=== PATIENT | female | born 1980 | race Caucasian/White ===

== ENCOUNTER 2017-04-16 12:00 | Emergency (ER) | payer BC ==
[~2017-04-16] VITALS: Ht 182.9 cm; Wt 44.5 kg
[2017-04-16 13:00] LABS: Basophils # (auto) 0 uL; Basophils % (auto) 0.8 % (0.0-2.0); CONDITION Y; Eosinophils # (auto) 0.2 uL; Eosinophils % (auto) 2.9 % (0.0-7.0); Hematocrit 41.4 % (36.0-46.0); Hemoglobin 13.7 g/dL (12.2-16.2); Lymphocytes % (auto) 19.9 % (10.0-50.0); Mean Corpuscular Hemoglobin 31.2 pg (28.0-32.0); Mean Corpuscular Hgb Conc. 33.1 g/dL (32.0-36.0); Mean Corpuscular Volume 94.3 fL (80.0-100.0); Mean Platelet Volume 9.8 fL (7.4-10.4); Monocytes # (auto) 0.4 uL; Monocytes % (auto) 7.9 % (0.0-12.0); Neutrophils # (auto) 3.5 uL; Neutrophils % (auto) 68.5 % (37.0-80.0); Platelet Count (auto) 218 10^3/uL (140-450); Red Cell Distribution Width 13.9 % (11.6-16.0); SUSPECT SEE PRINTOUT; White Blood Cell 5.2 10^3/uL (4.4-10.8)
[2017-04-16 13:05] LABS: Urine Bilirubin Negative (Negative); Urine Blood Negative /uL (Negative); Urine Color Yellow (Yellow); Urine Glucose Normal (Normal); Urine Ketone Negative (Negative); Urine Nitrite Negative (Negative); Urine RBC 1 /hpf (0 - 4); Urine Squamous Epithelial Cell FEW /hpf (<5); Urine Urobilinogen Normal (Negative); Urine pH 6.5 (5.0-8.0)
[2017-04-16 13:13] LABS: Albumin 3.8 g/dL (3.4-5.0); Calcium 9.1 mg/dL (8.5-10.1); Potassium 3.9 mmol/L (3.5-5.1)
[2017-04-16 13:16] LABS: Bilirubin, Total 0.4 mg/dL (0.2-1.0)
[2017-04-16 15:00] VITALS: BP 128/89
== END 2017-04-16 17:03 | disposition home or self-care (01) ==
LOC: ER 12:00
DX: K29.00 Acute gastritis without bleeding (principal); Z90.49 Acquired absence of other specified parts of digestive tract; Z87.442 Personal history of urinary calculi
CPT/HCPCS: 36415; 80053; 81001; 84702; 85025

== ENCOUNTER 2017-05-11 21:53 | Emergency (ER) | payer BC ==
[~2017-05-11] VITALS: Ht 154.9 cm; Wt 46.3 kg
[2017-05-11 22:15] VITALS: BP 141/96
== END 2017-05-12 00:48 | disposition left against medical advice (07) ==
LOC: EDBD 21:53 → ER 21:56
DX: R45.851 Suicidal ideations (principal); Z53.21 Procedure and treatment not carried out due to patient leaving prior to being seen by health care provider

== ENCOUNTER → 2018-01-17 | Outpatient (CLI) | payer BC ==
[2018-01-17 13:56] LABS: Urine WBC None Seen /hpf (0 - 5)
[2018-01-17 14:04] LABS: Urine Bacteria NONE SEEN /hpf (None Seen); Urine Blood Negative /uL (Negative); Urine Specific Gravity 1.002 (1.001-1.035)
[2018-01-18 05:07] LABS: RPR Non Reactive (Non Reactive)
== END | disposition home or self-care (01) ==
LOC: LAB 13:37
PROVIDERS: ATTEND Obstetrics & Gynecology
DX: Z11.3 Encounter for screening for infections with a predominantly sexual mode of transmission (principal); N91.2 Amenorrhea, unspecified; N39.0 Urinary tract infection, site not specified; Z20.2 Contact with and (suspected) exposure to infections with a predominantly sexual mode of transmission
CPT/HCPCS: 36415; 81001; 84702; 86592; 86695; 86696; 86703; 87070; 87086